=== PATIENT | female | born 1945 | race Hispanic/Latino ===

== ENCOUNTER 2016-08-10 11:16 | Outpatient (CLI) | payer MEDICARE, MEDICAID ==
[2016-08-10 12:42] LABS: #Basophils 0.1 thou/uL (0.0-0.2); #Eosinphils 0.2 thou/uL (0.0-0.7); #Lymphocytes 3.6 thou/uL (1.20-3.40); #Monocytes 0.5 thou/uL (0.11-0.59); #Neutrophils 4.6 thou/uL (1.40-6.50); %Basophils 0.6 % (0.0-1.0); %Eosinophils 1.7 % (0.0-10.0); %Lymphocytes 40.4 % (21.0-51.0); %Monocytes 5.6 % (0.0-10.0); %Neutrophils 51.7 % (42.0-75.0); Mean Corpuscular HGB CONC 33.7 g/dL (32.0-36.0); Mean Corpuscular Hemoglobin 30.6 pg (27.0-31.0); Mean Corpuscular Volume 90.7 fl (81.0-99.0); Mean Platelet Volume 8.1 fL (7.4-10.4); Platelet Count 278 thou/uL (130-400); RBC Distribution Width 12.2 % (11.5-14.5); Red Blood Cell (RBC) Count 4.59 mill/uL (4.20-5.40)
[2016-08-10 12:56] LABS: ALT (SGPT) 8 U/L (0-55); AST (SGOT) 16 U/L (5-34); Albumin 4.6 g/dL (3.4-4.8); Alkaline Phosphatase 80 U/L (40-150); Anion Gap 12 mmol/L (10-20); BUN (Urea Nitrogen) 22 mg/dL (9.8-20.1); Bilirubin, Total 0.6 mg/dL (0.2-1.2); Calc. Creatinine Clearance 0 mL/min (70-130); Carbon Dioxide 27 mmol/L (23-31); Cardiac Risk 2.6 (Less than 4.5); Chloride 105 mmol/L (98-107); Cholesterol 140 mg/dL (< 200 Desired); Estimated GFR-MDRD 53; Globulin 3.1 g/dL (2.4-3.5); Glucose 105 mg/dL (83-110); HDL Cholesterol 54 mg/dL (>60 Neg Risk); LDL Cholesterol, Calculated 66 mg/dL; Potassium 4.5 mmol/L (3.5-5.1); Protein, Total 7.7 g/dL (5.8-8.1); Sodium 139 mmol/L (136-145); Triglycerides 100 mg/dL (Less than 150)
[2016-08-10 12:58] LABS: Hemoglobin A1c 5.9 % (4.0-6.0)
[2016-08-10 18:35] LABS: Creatinine, Urine 216.54 mg/dL (47-110); Microalbumin Urine 1.7 mg/dL (0.5-50.0); Microalbumin/Creat Ratio 7.9 mg/g (Less than 30)
== END 2016-08-10 11:17 | disposition home or self-care (01) ==
LOC: HPCALD 11:16
PROVIDERS: ATTEND Family Medicine
DX: E11.9 Type 2 diabetes mellitus without complications (principal)
CPT/HCPCS: 36415; 80053; 80061; 82043; 83036; 84443; 85025

== ENCOUNTER 2019-11-23 11:08 | Outpatient (CLI) | payer MEDICARE, MEDICAID ==
--- NOTE | 2019-11-23 13:01 | RAD ---
LEFT SHOULDER 3 VIEWS: Date: 11/23/2019 Comparison made with the 08/25/2013 study. No fracture or dislocation seen. No bony destructive lesions noted. AC joint normal in width. Glenohu meral joint unremarkable in appearance. IMPRESSION: No significant findings. POS: HOME
== END 2019-11-23 11:09 | disposition home or self-care (01) ==
LOC: BURRAD 11:08
PROVIDERS: ATTEND Family Medicine
DX: M25.812 Other specified joint disorders, left shoulder (principal)

== ENCOUNTER 2023-12-05 14:11 | Outpatient (CLI) | payer OTHER, MEDICAID | END 2023-12-05 14:12 | disposition home or self-care (01) | LOC: BURRAD 14:11 | PROVIDERS: ATTEND Physician Assistant | DX: M54.41 Lumbago with sciatica, right side (principal); M47.816 Spondylosis without myelopathy or radiculopathy, lumbar region | CPT/HCPCS: 72110 ==